=== PATIENT | male | born 1960 | race Caucasian/White ===

== ENCOUNTER 2018-07-31 07:09 | Day surgery (SDC) | payer OTHER ==
[~2018-07-31] VITALS: Ht 182.9 cm; Wt 101.0 kg
[2018-07-31] MEDS ORDERED: AMLODIPINE (08:23)
[2018-07-31] MEDS ORDERED: METOPROLOL (08:23)
[2018-07-31] MEDS ORDERED: ASPIRIN LOW (08:23)
[2018-07-31] MEDS ORDERED: GABAPENTIN (08:23)
[2018-07-31] MEDS ORDERED: DICLOFENAC (08:23)
[2018-07-31] MEDS ORDERED: ESCITALOPRAM (08:23)
[2018-07-31] MEDS ORDERED: OMEPRAZOLE (08:23)
[2018-07-31] MEDS ORDERED: LOSARTAN POTASSIUM (08:23)
[2018-07-31 08:26] VITALS: Ht 182.9 cm; Wt 101.0 kg
[2018-07-31 09:40] VITALS: BP 129/72; PULSE 55; RESP 18
[2018-07-31] MEDS ORDERED: MIDAZOLAM 1 MG/ML 2 ML INJ ONE ×2 (10:43)
[2018-07-31] MEDS ORDERED: FENTAnyl 50 MCG/ML VIAL ONE (10:43)
[2018-07-31 11:08] VITALS: BP 129/82; RESP 20
== END 2018-07-31 15:31 | disposition home or self-care (01) ==
LOC: GIL 07:09
PROVIDERS: ATTEND Internal Medicine Gastroenterology
DX: D12.5 Benign neoplasm of sigmoid colon (principal); K57.30 Diverticulosis of large intestine without perforation or abscess without bleeding; I10 Essential (primary) hypertension
CPT/HCPCS: 45380; 88305; J2250; J3010; Z7610